=== PATIENT | female | born 1935 | race Caucasian/White ===

== ENCOUNTER → 2017-09-14 | Outpatient (CLI) | payer OTHER ==
[~2017-09-14] MED LIST: ANORO ELLIPTA1 EACH INH; ASPIRIN81 M2 PO; CELEBREX 200 M200 M1 PO; CRESTOR20 MG PO; HYDROCODON-ACE1 EA12 PO; IPRAT-ALBUT 0.5-3 ML INH; LASIX 20 MG TAB20 MG PO; PAXIL10 MG PO; POTASSIUM20 PO; SENNA8.6 MG PO; TOPROL XL100 MG PO; VENTOLIN HFA 1818 GM INH
--- NOTE | 2017-09-14 16:18 | 2DMMODE ---
[place] [address] 2 D/M-MODE ECHOCARDIOGRAM Name: AILEEN DANIELS Room: [facility]#: [id number] Admission: 09/14/17 Attend Phys: Ruddy Fajardo, Discharge: Date of : 39 Date of Service: 09/14/17 1618 Report #: [id number] THIS REPORT FOR: //name// APPROVED REPORT Study performed: 09/14/2017 14:21:54 EXAM: Comprehensive 2D, Doppler, and color-flow Echocardiogram Patient Location: Out-Patient Status: routine BSA: 1.76 HR: 68 bpm BP: 130/86 mmHg Other Information Study Quality: Good Indications CAD 2D Dimensions LVEF(%): 48.31 (>50%) IVSd: 13.21 (7-11mm) LVOT Diam: 19.24 (18-24mm) LVDd: 40.48 mm PWd: 8.26 (7-11mm) Ascending Ao: 28.06 (22-36mm) LVDs: 30.76 (25-40mm) Aortic Root: 29.23 mm Arguello's LVEF: 48.31 % Volumes Left Atrial Volume (Systole) LA ESV Index: 9.90 mL/m2 Aortic Valve AoV Peak Polo.: 1.34 m/s AO Peak Gr.: 7.16 mmHg LVOT Max P.46 mmHg AO Mean Gr.: 4.32 mmHg LVOT Mean P.12 mmHg LVOT Max V: 0.78 m/s AO V2 VTI: 23.45 cm LVOT Mean V: 0.48 m/s JOHNATHON (VTI): 1.59 cm2 LVOT V1 VTI: 12.79 cm Mitral Valve E/A Ratio: 0.62 MV Decel. Time: 356.37 [place] [address] 2 D/M-MODE ECHOCARDIOGRAM Name: AILEEN DANIELS Room: [facility]#: [id number] Admission: 09/14/17 Attend Phys: Ruddy Fajardo, Discharge: Date of : 39 Date of Service: 09/14/17 1618 Report #: [id number] MV E Max Polo.: 0.42 m/s MV PHT: 103.35 ms MVA (PHT): 2.13 cm2 TDI E/Lateral E': 4.20 E/Medial E': 5.25 Medial E' Polo.: 0.08 m/s Lateral E' Polo.: 0.10 m/s Pulmonary Valve PV Peak Polo.: 0.96 m/s PV Peak Gr.: 3.66 mmHg Tricuspid Valve TR Peak Gr.: 27.24 mmHg RVSP: 32.24 mmHg Left Ventricle The left ventricle is normal size. There is normal LV segmental wall motion. There is normal left ventricular wall thickness. The left ventricular systolic function is normal. The left ventricular ejection fraction is within the normal range. LVEF is 55-60%. Grade I - abnormal relaxation pattern. Right Ventricle The right ventricle is normal size. The right ventricular systolic function is normal. Atria The left atrium size is normal. The right atrium size is normal. Aortic Valve Mild aortic valve sclerosis. No aortic regurgitation is present. There is no aortic valvular stenosis. Mitral Valve The mitral valve is normal in structure. There is no mitral valve regurgitation noted. No evidence of mitral valve stenosis. Tricuspid Valve The tricuspid valve is normal in structure. Mild tricuspid regurgitation. The RVSP is __32.2 mmHg. Pulmonic Valve The pulmonary valve is normal in structure. Mild [place] [address] 2 D/M-MODE ECHOCARDIOGRAM Name: AILEEN DANIELS Room: [facility]#: [id number] Admission: 09/14/17 Attend Phys: Ruddy Fajardo, Discharge: Date of : 39 Date of Service: 09/14/17 1618 Report #: [id number] Great Vessels The aortic root is normal in size. IVC is normal in size and collapses with >50% inspiration Pericardium There is no pericardial effusion. <Conclusion> The left ventricle is normal size. There is normal left ventricular wall thickness. The left ventricular systolic function is normal. The left ventricular ejection fraction is within the normal range. LVEF is 55-60%. Grade I - abnormal relaxation pattern. The right ventricle is normal size. The left atrium size is normal. Mild aortic valve sclerosis. No aortic regurgitation is present. There is no aortic valvular stenosis. The mitral valve is normal in structure. The tricuspid valve is normal in structure. Mild tricuspid regurgitation. The RVSP is __32.2 mmHg. IVC is normal in size and collapses with >50% inspiration There is no pericardial effusion. There is normal LV segmental wall motion. <ELECTRONICALLY SIGNED> By: Enio Ventura MD, FACC 09/14/17 1618 161 17 nEio Ventura MD, FACC /INF
== END ==
LOC: M.CRD 13:57
DX: I25.10 Atherosclerotic heart disease of native coronary artery without angina pectoris (principal); I07.1 Rheumatic tricuspid insufficiency; I35.8 Other nonrheumatic aortic valve disorders

== ENCOUNTER → 2017-11-12 | Outpatient (CLI) | payer OTHER | LOC: M.RAD 10:28 | DX: R06.02 Shortness of breath (principal) ==

== ENCOUNTER → 2018-05-04 | Outpatient (CLI) | payer OTHER ==
[~2018-05-04] VITALS: Ht 165.1 cm; Wt 67.6 kg
[2018-05-04] VITALS (7 sets, daily range): BP systolic 111–130; BP diastolic 58–84
[2018-05-04 10:34] LABS: HEMATOCRIT 47.2 % (37.0-47.0); HEMOGLOBIN 15.7 gm/dL (12.0-15.0); MCH 31.2 pg (26.0-34.0); MCHC 33.3 g/dL (28.0-37.0); MCV 93.6 fL (80.0-100.0); MPV 8.1 fl. (7.2-11.1); RBC 5.04 mil/uL (4.20-5.00); RDW-CV 14.9 % (10.5-14.5)
[2018-05-04 10:46] LABS: ANION GAP 8 mmol/L (7-16); APTT 35.2 Seconds (25.0-31.3); BUN 22 mg/dL (7-18); CALCIUM 9.3 mg/dL (8.5-10.1); CHLORIDE 106 mmol/L (98-107); CO2 25 mmol/L (21-32); CREATININE 1.1 mg/dL (0.6-1.3); GLUCOSE 80 mg/dL (70-99); PROTIME 10.3 Seconds (9.20-11.50); SODIUM 139 mmol/L (136-145)
[2018-05-04 10:51] LABS: ALBUMIN 3.2 g/dL (3.4-5.0); ALKALINE PHOSPHATASE 65 U/L (46-116); CHOLESTEROL 173 mg/dL (<200); HDL CHOLESTEROL 85 mg/dL (>40); LDL CHOLESTEROL 70 mg/dL (<100); SERUM ASSESSMENT Clear; SGOT 14 U/L (15-37); SGPT 15 U/L (30-65); TOTAL BILIRUBIN 0.6 mg/dL (<0.1-1.0); TOTAL PROTEIN 6.9 g/dL (6.4-8.2); TRIGLYCERIDE 90 mg/dL (<150); VLDL 18 mg/dL (<40)
[2018-05-04 13:15] LABS: BE -2.3 mmol/L (-2 to +3); HCO3 22.3 mmol/L (22.0-26.0)
[2018-05-04 13:19] LABS: BE -2.6 mmol/L (-2 to +3); HCO3 21.7 mmol/L (22.0-26.0); PCO2 VENOUS 36.4 mmHg (41.0-51.0); PO2 VENOUS 43.3 mmHg (35.0-45.0)
[2018-05-04 13:22] LABS: BE -3.9 mmol/L (-2 to +3); HCO3 20.4 mmol/L (22.0-26.0); PCO2 VENOUS 35.2 mmHg (41.0-51.0); PO2 VENOUS 42.1 mmHg (35.0-45.0)
[2018-05-04 13:24] LABS: BE -3.2 mmol/L (-2 to +3); HCO3 20.3 mmol/L (22.0-26.0); PCO2 32.5 mmHg (35.0-45.0); PO2 70.7 mmHg (75.0-100.0); pH 7.413 (7.340-7.450)
[2018-05-04 13:26] LABS: BE -2.1 mmol/L (-2 to +3); HCO3 22.1 mmol/L (22.0-26.0); PCO2 36.6 mmHg (35.0-45.0); pH 7.398 (7.340-7.450)
[2018-05-04 13:29] LABS: PO2 VENOUS 36.5 mmHg (35.0-45.0)
[2018-05-04 15:07] LABS: BE -2.7 mmol/L (-2 to +3); HCO3 19.6 mmol/L (22.0-26.0); PCO2 28.5 mmHg (35.0-45.0); PO2 63.6 mmHg (75.0-100.0); pH 7.456 (7.340-7.450)
--- NOTE | 2018-05-04 17:12 | EKG ---
[place] [address] ELECTROCARDIOGRAM REPORT Name: AILEEN DANIELS Room: [facility]#: [id number] Admission: 05/04/18 Attend Phys: Ruddy Fajardo MD Discharge: Date of : 39 Report #: [id number] THIS REPORT FOR: //name// [facility] Test Date: 2018-05-04 Test Time: 10:30:35 Pat Name: AILEEN DANIELS Department: Room: Gender: F Deliverer Merchandise: : 1935 Requested By: Ruddy Fajardo Order Number: [id number] Reading : Enio Ventura Measurements Intervals [place] Rate: 67 P: 8 [place]: 194 QRS: -11 QRSD: 128 T: 117 QT: 431 QTc: 455 Interpretive Statements Sinus rhythm Left bundle branch block No previous ECG available for comparison Electronically Signed On 05-04-2018 17:11:46 CDT by Enio Ventura [email or web address] <ELECTRONICALLY SIGNED> By: Enio Ventura MD, [facility] 05/04/18 1711 1030 1030 Enio Ventura MD, FACC /EPI
--- NOTE | 2018-05-04 17:24 | CARD ---
[address] [address] CARDIAC CATH REPORT Name: AILEEN DANIELS Room: [facility]#: [id number] Admission: 05/04/18 Attend Phys: Ruddy Fajardo MD Discharge: Date of : 39 Report #: [id number] THIS REPORT FOR: //name// APPROVED REPORT Study performed: 05/04/2018 11:52:35 Patient Details Patient Status: Out-Patient Room #: The patient is a 83 year-old female Event Personnel Ruddy Fajardo Mine Supervisor, Chrissy Finch RN Cotton Picker Operator, Niko Monroy (R) Monitor, Rolf Larson Scrub, Mary Ellen Boyce RTR Scrub Procedures Performed Right and Left Heart Cath Lt Vent/Cors/Grafts Indication Persistent dyspnea and hypoxia with activity. Previous Procedures/Diagnoses Previous CABG Procedure Narrative The patient was brought electively to the Cardiac Catheterization Laboratory and was prepped and draped in a sterile manner. The right femoral was infiltrated with 1% Lidocaine subcutaneous anesthesia. A Right Heart Catheterization was performed with a 6 Fr. [place]-Rajinder catheter and pressure were recorded. Cardiac outputs were obtained by the Thermal Dilution method. A 6fr Ultimum Sheath sheath was inserted into the right femoral artery. Coronary angiography was performed using coronary diagnostic catheters. The right coronary system was accessed and visualized with a Diagnostic JR4 catheter. The left coronary system was accessed and visualized with a Diagnostic JL4 catheter. The left ventricle was accessed and visualized with a Diagnostic Angled Pigtail catheter. Left ventricular/Aortic Valve gradient assessed via catheter pullback. Left ventriculogram was performed in 30 degree, IZAGUIRRE projection. Closure device was deployed with a Fr Multi-Pack 6fr. The patient tolerated the procedure well and there were no complications associated with the procedure. There was no hematoma[place] [address] CARDIAC CATH REPORT Name: AILEEN DANIELS Room: [facility]#: [id number] Admission: 05/04/18 Attend Phys: Ruddy Fajardo MD Discharge: Date of : 39 Report #: [id number] Fentanyl 25 mcg Versed 1 mg Dose: 1197 mGy Contrast Type and Amount: Visipaque 190 ml Coronary Angiography The patient's coronary anatomy is right dominant. [place] Artery Percent Stenosis Grafts (Complete if Previous CABG=Yes: Percent Stenosis) NAPOLES graft to the LAD widely patent. Saphenous vein graft to the second obtuse marginal branch widely patent. Saphenous vein graft to the right PDA widely patent. Diagnostic Cath Left Main Short and normal and bifurcates into an LAD and circumflex coronary artery. LAD Calcified and 50% narrowed in a long tubular lesion extending from proximal to mid. Totally occluded in the midportion. Distally filled by NAPOLES graft. Diagonal 1 Small in caliber and diffusely disease. Circumflex 50% narrowing proximally and calcified. Mid and distal vessel free of significant stenoses. OM1 Mildly plaqued, moderate in size and branched. OM2 Totally occluded at its origin and filled by a graft. OM3 Small in size and free of significant disease. Right Coronary Totally occluded proximally. R PDA Small and diffusely plaqued. Filled by saphenous vein graft. Hemodynamics The right atrial mean pressure is 26 mmHg. The right ventricular pressure is 41/-4 mmHg. The pulmonary artery pressure is 38/15 mmHg with a mean of 24 mmHg. The mean pulmonary capillary wedge pressure is 10 mmHg. The aortic pressure is 134/64 mmHg with a mean of 91 mmHg. The left ventricular pressure is 149/73 mmHg with a mean of mmHg. The left ventricular end diastolic pressure is 77 mmHg. There was no gradient across the aortic valve upon pullback. PaO2 saturation is 72.5 %. Arterial saturation is 92.1 %. The cardiac output and index were assessed using thermodilution. The cardiac output using thermo method is 4.53 L/min. The cardiac index using thermo method is 2.60 L/min/m2. Conclusion 1. Three-[place] [address] CARDIAC CATH REPORT Name: AILEEN DANIELS Room: [facility]#: [id number] Admission: 05/04/18 Attend Phys: Ruddy Fajardo MD Discharge: Date of : 39 Report #: [id number] 2. Patent NAPOLES graft to the LAD. 3. Patent saphenous vein graft to the second obtuse marginal branch. 4. Patent saphenous vein graft to the right PDA. 5. Preserved left ventricular systolic function with mild hypokinesis of the mid to distal anterior and apical abel. 6. Normal right heart pressures. 7. Normal cardiac output. 8. No evidence of shunt by saturations. Recommendations 1. Continue medical management and aggressive risk factor modification. <ELECTRONICALLY SIGNED> By: Ruddy Fajardo MD, FACC 05/04/181723 23 23Micdeondre Fajardo MD, FACC /INF
== END | disposition home or self-care (01) ==
LOC: M.CL 09:22
PROVIDERS: Internal Medicine Cardiovascular Disease
DX: I25.10 Atherosclerotic heart disease of native coronary artery without angina pectoris (principal); I42.9 Cardiomyopathy, unspecified; E78.5 Hyperlipidemia, unspecified; I44.7 Left bundle-branch block, unspecified; I10 Essential (primary) hypertension; E78.2 Mixed hyperlipidemia; I48.0 Paroxysmal atrial fibrillation; F41.9 Anxiety disorder, unspecified; M19.90 Unspecified osteoarthritis, unspecified site; J45.909 Unspecified asthma, uncomplicated; I73.9 Peripheral vascular disease, unspecified; Z79.82 Long term (current) use of aspirin; Z79.899 Other long term (current) drug therapy; Z95.1 Presence of aortocoronary bypass graft; Z90.710 Acquired absence of both cervix and uterus; Z98.890 Other specified postprocedural states

== ENCOUNTER → 2018-07-15 | Outpatient (CLI) | payer OTHER ==
[2018-07-15 14:12] LABS: HEMATOCRIT 46.9 % (37.0-47.0); HEMOGLOBIN 15.9 gm/dL (12.0-15.0); MCH 32.1 pg (26.0-34.0); MCHC 33.9 g/dL (28.0-37.0); MCV 94.6 fL (80.0-100.0); MPV 8.2 fl. (7.2-11.1); RBC 4.95 mil/uL (4.20-5.00); RDW-CV 14.1 % (10.5-14.5); WBC 6.3 thou/uL (4.0-11.0)
== END ==
LOC: M.LAB 13:47
PROVIDERS: Internal Medicine Cardiovascular Disease
DX: R06.09 Other forms of dyspnea (principal)

== ENCOUNTER 2020-03-11 20:42 | Inpatient (IN) | payer OTHER ==
[~2020-03-11] VITALS: Ht 165.1 cm; Wt 69.2 kg
--- NOTE | ~2020-03-11 | CON ---
[facility] [address] [place] [address] CONSULTATION Name: JEREMIAHAILEEN SHAHID Room: [address] ADM IN M.R.#: [id number] Admission: 03/11/20 Attend Phys: Solis Ferreira Discharge: Date of : 37 Report #: [id number] THIS REPORT FOR: //name// cc: Ramona Green MD, Lin W. MD ~ THIS REPORT FOR: //name// CC: Ramona Jones DATE OF SERVICE: 03/13/2020 REQUESTING PHYSICIAN: Dr. Jones. INDICATION FOR CONSULTATION: Hypoxemia. HISTORY OF PRESENT ILLNESS: This is an 85-year-old female with past medical history includes a history of COPD, although she is a lifetime nonsmoker. She has significant exposure to secondhand smoke. She is followed by Dr. Leblanc. She is on 4 liters oxygen long-term. There is no known history of CPAP or BiPAP use at home. The patient also does have a history of atrial fibrillation and is on anticoagulation at home. At this time, the patient is admitted late at night on 03/11 presentation was after a fall from a chair, she got bilateral hematomas on lower extremities, she has a small bruising in her right chest as well. The patient was due for an I and D today. However, there is a significant increase in oxygen needs from 4 liters to 14 liters to maintain O2 saturation in the low 90s and therefore the surgery has been postponed and we have been asked to evaluate the patient. The patient does complain of shortness of breath at rest or more than her baseline. She does have a cough. There is not much sputum. There is minor pain in her right chest, which she did injure herself. She does report a clear nasal discharge, this is new for her. There is no sore throat. There is no fever or chills. She does have some swelling of lower extremities, but other than having hematomas in the lower extremities, she does not report this to be significantly worse than her baseline. She has had some joint pains, which are at baseline. She does complain of frequency of micturition. There is pain at the site of injuries. REVIEW OF SYSTEMS: I asked her 12 questions for review of systems, patient answered the negatives except as mentioned above. PAST MEDICAL HISTORY: COPD, on 4 liters oxygen continuous. Cardiomyopathy. There is a previous echo from 2018, which shows a left ventricular ejection fraction normal at 55-60% with a pulmonary artery systolic of 32. She may have had a more recent echo at [facility]; however, the same is not available to me at this time and atrial fibrillation, on anticoagulation with Eliquis; left bundle branch block; hypertension; [place] [address] CONSULTATION Name: AILEEN DANIELS Room: [address] ADM IN M.R.#: [id number] Admission: 03/11/20 Attend Phys: Solis Ferreira Discharge: Date of : 39 Report #: [id number] SOCIAL HISTORY: She is a lifetime nonsmoker. No known history of heavy alcohol use or illegal drug use. Has had significant exposure to secondhand smoke. FAMILY HISTORY: There is heart disease in the family. There is also significant history of smoking in her family. ALLERGIES: No known drug allergies. CURRENT MEDICATIONS: List in [facility] reviewed. HOME MEDICATIONS: List in [place] reviewed. Also, she is describing an inhaler from her description, it may be Anoro. PHYSICAL EXAMINATION: GENERAL: She is alert, awake and oriented, does not appear to be in any distress at this time; however, she is oxygenating only 88-90%. She is on 14 liters oxygen, she has a pulse of 102, irregular with a blood pressure of 120/66. Her respiratory rate is 20. She has a temperature of 37.2, which is a T-max. HEENT: Head is normocephalic and atraumatic. Pupils are equal and reactive. There is no throat erythema. There is no thrush in her throat; however, there was some food present in her throat, which limits evaluation. NECK: Does not show raised JVP, asymmetry, mass or lymph nodes. CHEST: Symmetrical expansion on inspection and palpation. On auscultation, breath sounds are bilaterally equal, but decreased. I do not hear any added sounds. There is a minor bruising in the right chest. HEART: Irregular. There is a minimal systolic murmur. ABDOMEN: Soft and nontender. There is no bruising over her abdomen. EXTREMITIES: Lower extremities do show 1+ edema. There are hematomas bilaterally as well. SKIN: Compromised by injuries as above, it is moist. NEUROLOGICAL: She moves all extremities bilaterally equally and spontaneously. No focal deficit identified. LABORATORY DATA: The patient had a CT chest performed last night. It was performed with contrast, but not with a PE protocol. There is no mention of a PE on the report. There is atelectasis at the right lung base. There is a small area of air bronchograms at the right lung base as well, which could be secondary to a small contusion or pneumonia putting her clinical picture together, it in fact appears to be more likely a small lung contusion. She has thyroid nodules. The patient's CBC as well as chemistries in [facility] reviewed. Reduced BUN to 9 is noted. Coagulation studies in [facility] reviewed. Initial D-dimer was elevated. COVID-19 screen is negative. Urinalysis does show nitrite as well as 6-[place] [address] CONSULTATION Name: AILEEN DANIELS Room: [address] ADM IN .R.#: [id number] Admission: 03/11/20 Attend Phys: Solis Ferreira Discharge: Date of : 37 Report #: [id number] ASSESSMENT AND PLAN: 1. Zhblu-bz-eenvmcg hypoxemic respiratory failure. In the background, she is reported to have COPD. This appears to have decompensated with recent injury. There is some atelectasis on the right side. Also, she appears to be fluid overloaded. There are small areas of air bronchograms in the right lung base. These are likely secondary to a small lung contusion. 2. Fluid overload. I would discontinue IV fluids. Ordered one additional dose of Lasix. She is on a small dose of Lasix long-term. Ordered midodrine to avoid a drop in blood pressure with Lasix. Ordered potassium with it as well. We requested magnesium level to be added to the morning labs. 3. Chronic obstructive pulmonary disease. Considering significant worsening hypoxia, I will give her Solu-Medrol, remains on DuoNeb, I increased the DuoNeb frequency. 4. Atelectasis. Recommended incentive spirometry. If she is able to assist with PT/OT, we will consider the same as well. 5. Pulmonary infiltrate/lung contusion. There is a small area of air bronchograms seen posteriorly at the right lung base, this is likely secondary to a small lung contusion. On CT imaging, this look identical to a small area of pneumonia. While my clinical impression is that this is more likely secondary to her recent injury leading to a small contusion. Considering worsening hypoxia, I did decide to treat her with ceftriaxone. She is able to provide a sputum culture, we will obtain the same as well. Also, ordered a nasal swab for methicillin-resistant Staphylococcus aureus. 6. Atrial fibrillation. She is noted to be on Eliquis at home, which is currently on hold. 7. Evaluation for thromboembolic phenomenon. My suspicion is low, considering that she was on Eliquis at home. If she fails to improve, then I will review with the radiologist as to whether there is an indication to repeat a CT chest with PE protocol. 8. Fall/bilateral lower extremity hematomas/minor right chest bruise. I will suggest proceeding to I and D of hematomas today only if urgent. Otherwise, we will reevaluate the patient tomorrow morning and then advice. Regardless, the patient is likely to remain high risk for general anesthesia and therefore if possible suggest avoiding general anesthesia. Thanks for this consultation. By: [id number] Patel MD /nt
[~2020-03-11 20:42] MED LIST changes: +ASPIRIN EC81 M1 PO; -ASPIRIN81 M2 PO
[2020-03-11 20:44] VITALS: BP 87/43
[2020-03-11 21:25] LABS: HEMATOCRIT 31.8 % (37.0-47.0); HEMOGLOBIN 10.7 gm/dL (12.0-15.0); MCH 29.6 pg (26.0-34.0); MCHC 33.6 g/dL (28.0-37.0); MPV 8.5 fl. (7.2-11.1); NUCLEATED RBCS 0 /100WBC; PLATELET COUNT* 252 thou/uL (150-400); RBC 3.62 mil/uL (4.20-5.00); WBC 12.2 thou/uL (4.0-11.0)
[2020-03-11 21:29] LABS: INR 1.1; PROTIME 11.6 Seconds (9.20-11.50)
[2020-03-11 21:31] LABS: CALCIUM 8.7 mg/dL (8.5-10.1); CREATININE 1.3 mg/dL (0.6-1.3); POTASSIUM 5.3 mmol/L (3.5-5.1)
[2020-03-11 21:41] LABS: ALBUMIN 2.4 g/dL (3.4-5.0); MAGNESIUM 1.5 mg/dL (1.8-2.4); TOTAL BILIRUBIN 0.4 mg/dL (<0.1-1.0); TOTAL PROTEIN 5.6 g/dL (6.4-8.2)
[2020-03-11 22:19] LABS: ABSOLUTE LYMPHOCYTES 0.7 thou/uL (0.8-5.3); ABSOLUTE MONOCYTES 0.2 thou/uL (0.0-1.2); ABSOLUTE NEUTROPHILS 11.2 thou/uL (1.6-8.1)
[2020-03-11 22:22] LABS: PLATELET ESTIMATE ADEQUATE
[2020-03-11 22:23] LABS: ANISOCYTOSIS 1+
[2020-03-11 23:12] VITALS: BP 101/58
[2020-03-11 23:40] VITALS: BP 122/61
[2020-03-12 04:00] VITALS: BP 88/60
[2020-03-12 08:30] VITALS: BP 97/56
[2020-03-12 08:46] LABS: ABSOLUTE LYMPHOCYTES 0.9 thou/uL (0.8-5.3); ABSOLUTE MONOCYTES 0.7 thou/uL (0.0-1.2); ABSOLUTE NEUTROPHILS 5.7 thou/uL (1.6-8.1); BASOPHILS 0.7 %; EOSINOPHILS 0.6 %; HEMATOCRIT 29.4 % (37.0-47.0); LYMPHOCYTES 12.5 %; MCH 30.2 pg (26.0-34.0); MCHC 33.9 g/dL (28.0-37.0); MCV 89.2 fL (80.0-100.0); MPV 7.9 fl. (7.2-11.1); NUCLEATED RBCS 0 /100WBC; PLATELET COUNT* 228 thou/uL (150-400); POLYS 77.2 %; RDW-CV 17.5 % (10.5-14.5); WBC 7.3 thou/uL (4.0-11.0)
[2020-03-12 09:16] LABS: ALBUMIN 2.2 g/dL (3.4-5.0); CALCIUM 7.8 mg/dL (8.5-10.1); TOTAL BILIRUBIN 0.4 mg/dL (<0.1-1.0); TOTAL PROTEIN 5.2 g/dL (6.4-8.2)
[2020-03-12 09:17] LABS: POTASSIUM 4.4 mmol/L (3.5-5.1)
--- NOTE | 2020-03-12 09:33 | EKG ---
[place] [address] ELECTROCARDIOGRAM REPORT Name: AILEEN DANIELS Room: [address] ADM IN .R.#: [id number] Admission: 03/11/20 Attend Phys: Erwin Jones Discharge: Date of : 39 Date of Service: 03/11/202110 Report #: [id number] THIS REPORT FOR: //name// [facility] ED Test Date: 2020-03-11 Test Time: 21:11:30 Pat Name: AILEEN DANIELS Department: Room: [facility] Gender: F Ux Interaction Designer: EDITA : 1935 Requested By: Patricia Dumas Order Number: [id number] MD: Jamshid Moreno Measurements Intervals [place] Rate: 68 P: 18 [place]: 216 QRS: -11 QRSD: 123 T: 118 QT: 434 QTc: 462 Interpretive Statements Sinus rhythm Borderline prolonged WA interval Left bundle branch block Baseline wander in lead(s) II,III,aVF,V4 Compared to ECG 05/04/2018 10:30:35 No significant changes Electronically Signed On 03-12-2020 9:33:45 CDT by Jamshid Moreno [email or web address] <ELECTRONICALLY SIGNED> By: Jamshid Moreno MD, FACC 03/12/2033 10 10 Jamshid Moreno MD, FAC /EPI
[2020-03-12 10:21] LABS: URINE BILIRUBIN NEGATIVE (Negative); URINE BLOOD NEGATIVE (Negative); URINE CLARITY CLEAR; URINE COLOR YELLOW; URINE GLUCOSE-RANDOM NEGATIVE (Negative); URINE KETONES NEGATIVE (Negative); URINE LEUKOCYTES-REFLEX TRACE (Negative); URINE PROTEIN NEGATIVE (Negative); URINE SPECIFIC GRAVITY 1.025 (1.005-1.030); URINE UROBILINOGEN 0.2 E.U./dl (0.2-1.0)
[2020-03-12 10:22] LABS: URINE NITRITE-REFLEX POSITIVE (Negative)
[2020-03-12 10:28] LABS: BACTERIA-REFLEX >30 Many /HPF (None Seen); MUCUS 0-3 Light strn/LPF (None Seen); SQUAMOUS 0-3 Few /LPF (0-3); URINE RBC 0-2 Rare /HPF (0-2); URINE WBC-REFLEX 6-15 Few /HPF (0-5)
[2020-03-12 10:29] LABS: CRYSTALS None Seen /LPF (None Seen); HYALINE CASTS 4-10 Moderate /LPF (None Seen)
[2020-03-12 12:13] VITALS: BP 102/49
--- NOTE | 2020-03-12 16:16 | NUR ---
Pt is A&O. Resides at home alone. Pt has a "nurse friend" that comes in 3x/week to assist with cooking, cleaning and does the treatments on her legs. Pt uses a walker or cane for mobility. Pt wears 4L o2 continuous through [facility]. Hx of [facility]. No hx of SNF. Pt states that she wants to complete an OOH DNR, CM to have Pt sign. Copy of DPOA brought to the hospital and on Pt's chart. Surgery drained Pt's hematoma's at bedside today. Following.
[2020-03-12 19:50] VITALS: BP 115/63
[2020-03-13 00:08] VITALS: BP 125/58
[2020-03-13 04:48] VITALS: BP 130/62
[2020-03-13 06:32] LABS: ABSOLUTE LYMPHOCYTES 0.8 thou/uL (0.8-5.3); ABSOLUTE MONOCYTES 0.8 thou/uL (0.0-1.2); ABSOLUTE NEUTROPHILS 7.1 thou/uL (1.6-8.1); BASOPHILS 0.4 %; EOSINOPHILS 0.1 %; HEMOGLOBIN 9.2 gm/dL (12.0-15.0); LYMPHOCYTES 9.3 %; MCH 30.1 pg (26.0-34.0); MCV 88.4 fL (80.0-100.0); MONOCYTES 9.4 %; MPV 8.6 fl. (7.2-11.1); NUCLEATED RBCS 0 /100WBC; PLATELET COUNT* 207 thou/uL (150-400); POLYS 80.8 %; RBC 3.05 mil/uL (4.20-5.00); RDW-CV 17.6 % (10.5-14.5); WBC 8.8 thou/uL (4.0-11.0)
[2020-03-13 06:42] LABS: ALBUMIN 2.3 g/dL (3.4-5.0); CALCIUM 7.8 mg/dL (8.5-10.1); CREATININE 0.8 mg/dL (0.6-1.3); TOTAL BILIRUBIN 0.5 mg/dL (<0.1-1.0); TOTAL PROTEIN 5.5 g/dL (6.4-8.2)
--- NOTE | 2020-03-13 07:08 | NUR ---
PT O2 SAT DROPED TO LOW 80'2 PT HIGH FLOW WAS ADJUSTED FROM 7-8-15L HIGH FLOW THROUGHTOUT THE NIGHT, PT O2 STABLE AT 15L HIGH FLOW. PT PLACED ON A PUREWICK PER REQUEST.
[2020-03-13 08:00] VITALS: BP 120/66
[2020-03-13 08:27] LABS: PROTIME 10.6 Seconds (9.20-11.50)
--- NOTE | 2020-03-13 11:17 | NUR ---
Pt scheduled to have surgery today, anxious requiring 14L oxygen, pulm consulted.
[2020-03-13 12:00] VITALS: BP 88/65
[2020-03-13 16:00] VITALS: BP 103/53
--- NOTE | 2020-03-13 16:11 | 2DMMODE ---
[place] [address] 2 D/M-MODE ECHOCARDIOGRAM Name: JEREMIAHAILEEN ANN Room: [address] IN [facility]#: [id number] Admission: 03/11/20 Attend Phys: Erwin Jones Discharge: Date of : 39 Date of Service: 03/13/20 1611 Report #: [id number] THIS REPORT FOR: cc: Ramona Green MD, Lin W. MD [place], Michael J. MD [facility] ~ APPROVED REPORT Study performed: 03/13/2020 13:34:10 EXAM: Comprehensive 2D, Doppler, and color-flow Echocardiogram Patient Location: In-Patient Room #: [facility] Status: routine BSA: 1.74 HR: 88 bpm BP: 120/66 mmHg Rhythm: NSR Other Information Study Quality: Good Indications Dyspnea 2D Dimensions IVSd: 10.53 (7-11mm) LVOT Diam: 18.37 (18-24mm) LVDd: 42.35 mm PWd: 11.32 (7-11mm) Ascending Ao: 28.40 (22-36mm) LVDs: 26.80 (25-40mm) Aortic Root: 27.09 mm Volumes Left Atrial Volume (Systole) LA ESV Index: 21.20 mL/m2 Aortic Valve AoV Peak Polo.: 1.52 m/s AO Peak Gr.: 9.19 mmHg LVOT Max P.54 mmHg AO Mean Gr.: 4.66 mmHg LVOT Mean P.67 mmHg LVOT Max V: 0.94 m/s AO V2 VTI: 22.54 cm LVOT Mean V: 0.59 m/s JOHNATHON (VTI): 1.80 cm2 LVOT V1 VTI: 15.27 [place] [address] 2 D/M-MODE ECHOCARDIOGRAM Name: AILEEN DANIELS SHAHID Room: [address] IN M.R.#: [id number] Admission: 03/11/20 Attend Phys: Erwin Jones Discharge: Date of : 39 Date of Service: 03/13/20 1611 Report #: [id number] Mitral Valve E/A Ratio: 0.65 MV Decel. Time: 192.69 ms MV E Max Polo.: 0.64 m/s MV PHT: 55.88 ms MVA (PHT): 3.94 cm2 TDI E/Lateral E': 4.92 E/Medial E': 8.00 Medial E' Polo.: 0.08 m/s Lateral E' Polo.: 0.13 m/s Pulmonary Valve PV Peak Polo.: 1.03 m/s PV Peak Gr.: 4.22 mmHg Tricuspid Valve RAP Estimate: 5.00 mmHg TR Peak Gr.: 35.48 mmHg RVSP: 40.00 mmHg PA Pressure: 40.00 mmHg Left Ventricle The left ventricle is normal size. There is slight left ventricular systolic dyssynergy consistent with underlying bundle branch block. There is normal left ventricular wall thickness. Left ventricular systolic function is normal. LVEF is 55-60%. Grade I - abnormal relaxation pattern. Right Ventricle The right ventricle is normal size. The right ventricular systolic function is normal. Atria The left atrium size is normal. Right atrium is dilated. Aortic Valve Mild aortic valve sclerosis. No aortic regurgitation is present. Mild aortic stenosis. Mitral Valve The mitral valve is normal in structure. There is no mitral valve regurgitation noted. No evidence of mitral valve stenosis. Tricuspid Valve The tricuspid valve is normal in structure. Mild tricuspid regurgitation. The RVSP is 40-[place] [address] 2 D/M-MODE ECHOCARDIOGRAM Name: RANULFODaquanAILEEN SHAHID Room: [address] IN [facility]#: [id number] Admission: 03/11/20 Attend Phys: Erwin Jones Discharge: Date of : 39 Date of Service: 03/13/20 1611 Report #: [id number] Pulmonic Valve The pulmonary valve is normal in structure. Mild pulmonic regurgitation. Great Vessels The aortic root is normal in size. IVC is normal in size and collapses >50% with inspiration. Pericardium There is no pericardial effusion. <Conclusion> The left ventricle is normal size. There is normal left ventricular wall thickness. Left ventricular systolic function is normal. LVEF is 55-60%. Grade I - abnormal relaxation pattern. There is slight left ventricular systolic dyssynergy consistent with underlying bundle branch block. Mild aortic valve sclerosis. Mild aortic stenosis. Mild tricuspid regurgitation. The RVSP is 40-45 mmHg. IVC is normal in size and collapses >50% with inspiration. <ELECTRONICALLY SIGNED> By: Ruddy Fajardo MD, FACC 03/13/20 161 10 10 Ruddy Fajardo MD, FACC /INF
--- NOTE | 2020-03-13 19:04 | NUR ---
Pt. aox4, vss, pain under control, assisted md with wound care to LLE. RLE hematoma HIMANSHU, no drainage. Pt. continues on 14L NC, discussed resp status with annabelle rosa and alina senior rd engineer. IV placed per jennifer: 20 L AC, 20 L FA. call light and personal belongings placed within reach. pt in bed, in stable condition, watching tv, at shift change.
[2020-03-13 19:40] VITALS: BP 111/59
[2020-03-14] VITALS: BP 104/59
[2020-03-14 04:00] VITALS: BP 111/57
[2020-03-14 05:32] LABS: ABSOLUTE LYMPHOCYTES 0.4 thou/uL (0.8-5.3); ABSOLUTE MONOCYTES 0.1 thou/uL (0.0-1.2); ABSOLUTE NEUTROPHILS 7.1 thou/uL (1.6-8.1); BASOPHILS 0.2 %; HEMATOCRIT 27.1 % (37.0-47.0); HEMOGLOBIN 9.3 gm/dL (12.0-15.0); LYMPHOCYTES 5.6 %; MCH 30.1 pg (26.0-34.0); MCHC 34.4 g/dL (28.0-37.0); MCV 87.6 fL (80.0-100.0); MONOCYTES 1.8 %; MPV 8.3 fl. (7.2-11.1); NUCLEATED RBCS 0 /100WBC; PLATELET COUNT* 220 thou/uL (150-400); POLYS 92.4 %; RDW-CV 17.2 % (10.5-14.5); WBC 7.7 thou/uL (4.0-11.0)
[2020-03-14 06:58] LABS: ALBUMIN 2.4 g/dL (3.4-5.0); CALCIUM 8.1 mg/dL (8.5-10.1); CREATININE 0.8 mg/dL (0.6-1.3); MAGNESIUM 1.7 mg/dL (1.8-2.4); POTASSIUM 3.6 mmol/L (3.5-5.1); TOTAL BILIRUBIN 0.5 mg/dL (<0.1-1.0); TOTAL PROTEIN 6.2 g/dL (6.4-8.2)
[2020-03-14 08:00] VITALS: BP 105/59
--- NOTE | 2020-03-14 11:24 | NUR ---
Pt to surgery today for hematoma evacuation. Pt remains on 14L o2, normally on 4L at home. Following.
[2020-03-14 12:00] VITALS: BP 115/76
--- NOTE | 2020-03-14 16:33 | NUR ---
PT RETURN FROM OR FOR I/D OF LEFT LOWER LEG HEMATOMA WITH WOUND VAC APPLICATION. PT ON 13L [place] NC WITH CONTINOUS PULSE OXIMETER SATURATING 94%. WILL PASS ON TO [facility].
[2020-03-14 17:00] VITALS: BP 141/72
[2020-03-14 17:20] LABS: ABSOLUTE BASOPHILS 0.1 thou/uL (0.0-0.2); ABSOLUTE LYMPHOCYTES 0.4 thou/uL (0.8-5.3); ABSOLUTE MONOCYTES 0.6 thou/uL (0.0-1.2); ABSOLUTE NEUTROPHILS 14.3 thou/uL (1.6-8.1); BASOPHILS 0.5 %; HEMATOCRIT 29.1 % (37.0-47.0); HEMOGLOBIN 9.7 gm/dL (12.0-15.0); LYMPHOCYTES 2.9 %; MCH 29.3 pg (26.0-34.0); MCHC 33.3 g/dL (28.0-37.0); MCV 88.1 fL (80.0-100.0); MONOCYTES 4.1 %; MPV 8.4 fl. (7.2-11.1); NUCLEATED RBCS 0 /100WBC; PLATELET COUNT* 266 thou/uL (150-400); POLYS 92.5 %; RBC 3.31 mil/uL (4.20-5.00); RDW-CV 17.6 % (10.5-14.5); WBC 15.5 thou/uL (4.0-11.0)
[2020-03-14 17:26] LABS: CALCIUM 8.5 mg/dL (8.5-10.1); POTASSIUM 3.6 mmol/L (3.5-5.1)
[2020-03-14 20:00] VITALS: BP 91/44
[2020-03-15] VITALS: BP 101/60
--- NOTE | 2020-03-15 02:45 | NUR ---
PT ALERT ORIENTED. TAKING HYDROCODONE Q 4 HRS. PT STATING, "I WANT TO STAY ON TOP OF THE PAIN" L LEG WOUND VAC -125 SXN. PT REFUSING TO TURN AT TIMES. ENCOURAGEMENT TO TURN PROVIDED. TELEMETRY SHOWW SR BBB. O2 TITRATED FROM 13 LITERS TO 11. WILL CONTINUE TO MONITOR.
[2020-03-15 04:04] VITALS: BP 106/57
[2020-03-15 05:09] LABS: HEMATOCRIT 26.6 % (37.0-47.0); HEMOGLOBIN 9.1 gm/dL (12.0-15.0); MCH 29.9 pg (26.0-34.0); MCHC 34.1 g/dL (28.0-37.0); MCV 87.6 fL (80.0-100.0); MPV 8.8 fl. (7.2-11.1); NUCLEATED RBCS 0 /100WBC; PLATELET COUNT* 276 thou/uL (150-400); RBC 3.04 mil/uL (4.20-5.00); RDW-CV 17.5 % (10.5-14.5); WBC 13.6 thou/uL (4.0-11.0)
[2020-03-15 05:27] LABS: ALBUMIN 2.4 g/dL (3.4-5.0); CALCIUM 8.1 mg/dL (8.5-10.1); MAGNESIUM 2.1 mg/dL (1.8-2.4); POTASSIUM 3.9 mmol/L (3.5-5.1); TOTAL BILIRUBIN 0.4 mg/dL (<0.1-1.0)
[2020-03-15 05:56] LABS: ABSOLUTE LYMPHOCYTES 0.5 thou/uL (0.8-5.3); ABSOLUTE MONOCYTES 0.4 thou/uL (0.0-1.2); ABSOLUTE NEUTROPHILS 12.6 thou/uL (1.6-8.1); ANISOCYTOSIS 1+; PLATELET ESTIMATE ADEQUATE; POIKILOCYTOSIS 1+
[2020-03-15 08:00] VITALS: BP 113/55
--- NOTE | 2020-03-15 10:10 | NUR ---
Pt will need a wound vac at dc, nurse put in a wound care consult. CM spoke with wound care nurse ask that he complete the wound portion of the vac judi. CM placed judi on front of Pt's chart. Pt is in agreement with HH, CM faxed facesheet to [employer] so they can run for coverage, [facility]. Pt still requiring 11L of oxygen, anticipate dc in a few days. Following.
[2020-03-15 14:05] VITALS: BP 120/66
[2020-03-15 17:18] VITALS: BP 111/51
--- NOTE | 2020-03-15 19:01 | NUR ---
PT HAS RESTED T/O DAY,C/O PAIN TO LEG. VSS. PT REMAINS ON 9L NC. O2 SAT IS STILL 88-90%.PT IS SR,BBB ON MONITOR. WOUND CONSULT PLACED FOR HOME WOUND VAC MANAGEMENT ASSESSMENT. PT TO HAVE HOME WOUND VAC BROUGHT IN TOMORROW AND PLACED AT 1000AM. NEW ORDER FOR BIPAP O/N. [facility] CHANGED.ASSESSMENT DOCUMENTED.CLWR.WCTM
[2020-03-15 21:00] VITALS: BP 125/75
[2020-03-16] VITALS: BP 134/74
[2020-03-16 04:00] VITALS: BP 119/65
[2020-03-16 05:28] LABS: ABSOLUTE LYMPHOCYTES 0.3 thou/uL (0.8-5.3); ABSOLUTE MONOCYTES 0.5 thou/uL (0.0-1.2); ABSOLUTE NEUTROPHILS 10.4 thou/uL (1.6-8.1); BASOPHILS 0.1 %; HEMATOCRIT 27.3 % (37.0-47.0); HEMOGLOBIN 9.3 gm/dL (12.0-15.0); LYMPHOCYTES 2.9 %; MCHC 34.1 g/dL (28.0-37.0); MONOCYTES 4.8 %; MPV 8.9 fl. (7.2-11.1); NUCLEATED RBCS 0 /100WBC; PLATELET COUNT* 278 thou/uL (150-400); POLYS 92.2 %; RDW-CV 18.2 % (10.5-14.5); WBC 11.3 thou/uL (4.0-11.0)
[2020-03-16 05:41] LABS: ALBUMIN 2.5 g/dL (3.4-5.0); CALCIUM 8.4 mg/dL (8.5-10.1); MAGNESIUM 2.1 mg/dL (1.8-2.4); TOTAL BILIRUBIN 0.4 mg/dL (<0.1-1.0); TOTAL PROTEIN 6.3 g/dL (6.4-8.2)
--- NOTE | 2020-03-16 06:45 | NUR ---
No acute event this shift. Pt complains of leg pain rated 5, Pain meds given per sep. Pt report partial relief. Wound vac on L leg intact. Pt on continous pulse ox, sat 90's 9L high flow, Bipap was on overnight. Pt on purewick. Pt Q2 turn maintained. Pt use call light appropriately, hourly rounding, will continue to monitor.
[2020-03-16 08:00] VITALS: BP 122/74
[2020-03-16] MEDS ORDERED: LASIX 20 MG TAB20 MG PO (09:47)
[2020-03-16] MEDS ORDERED: SINGULAIR 10 MG10 M1 PO (09:47)
[2020-03-16] MEDS ORDERED: HYDROCODON-ACE1 EAC7 PO (09:47)
[2020-03-16] MEDS ORDERED: CARDIZEM CD120 MG PO (09:49)
[2020-03-16] MEDS ORDERED: AMOX TR-K CLV1 EAC3 PO (09:49)
[2020-03-16] MEDS ORDERED: PREDNISONE 10 M10 MG PO (09:56)
--- NOTE | 2020-03-16 11:32 | NUR ---
Pt will be medically stable to dc when o2 needs are 5L or less, Pt currently on 9L. Rollator walker to be delivered to hospital today. CM faxed hospital bed order to Tish at [facility], she will let CM know if insurance will cover. Wound vac delivered today, surgery to place today. CM waiting regional account manager back from [facility] to determine if they will be able to accept Pt over the weekend, dc orders will need to be faxed to [phone] p:[phone]. Anticipate weekend dc.
[2020-03-16 15:18] VITALS: BP 122/74
[2020-03-16 16:00] VITALS: BP 134/61
--- NOTE | 2020-03-16 18:00 | NUR ---
VS CHARTED, SB TO AFIB ON TELE, HIGH FLOW CANNULA AT 7L- BIPAP AT NIGHT, LEFT LEG WOUND FROM HEMATOMA WITH WOUND VAC, LIMITED MOBILITY DUE TO WOUND VAC, PURE WICK IN USE, EXTREME SOA ON EXERTION AND COMMUNICATION.
[2020-03-16 20:00] VITALS: BP 125/72
[2020-03-17 00:23] VITALS: BP 153/64
[2020-03-17 04:25] VITALS: BP 141/66
--- NOTE | 2020-03-17 06:12 | NUR ---
ASSUMED CARE OF PT AFTER REPORT AT 1930. PT A&OX4. VSS .PHYSICAL ASSESSMENT COMPLETED AND CHARTED. PT ON O2 AT 7L NC/BIPAP AT HS. PT TRACING SR/BBB ON TELE. PT COMPLAINED OF BACK PAIN-MED GIVEN PER SEP. MAINTAINED LLE ON WOUND VAC. PT WITH EPISODES OF INCONTINENT BLADDER. PT O2 SAT DROPS TO 84-88& WHEN TALKING. FALL PRECAUTIONS IN PLACE. CALL LIGHT WITHIN REACH.
[2020-03-17 08:00] VITALS: BP 140/82
[2020-03-17] MEDS ORDERED: ELIQUIS5 MG PO (11:22)
[2020-03-17 12:10] VITALS: BP 143/70
[2020-03-17 17:17] VITALS: BP 125/75
[2020-03-17 20:00] VITALS: BP 112/75
[2020-03-18] VITALS (7 sets, daily range): BP systolic 112–135; BP diastolic 57–74
--- NOTE | 2020-03-18 08:00 | NUR ---
ASSUMED CARE OF PT AFTER REPORT AT 1930. PT A&OX4. VSS. PHYSICAL ASSESSMENT COMPLETED AND CHARTED. PT ON O2 AT 7L NC/BIPAP AT HS. PT ONLY WORE BIPAP FOR A COUPLE OF HOURS. PT ON CONTINUOUS PULSE OX. PT WAS NAUSEAUS BUT REFUSED MEDICATION. FALL PREACUTIONS IN PLACE. CALL LIGHT WITHIN REACH.
[2020-03-18] MEDS ORDERED: SERTRALINE HCL100 MG PO (09:12)
--- NOTE | 2020-03-18 18:04 | NUR ---
Pt AOx4. Pt is up with assist x1 to bsc. Pt has wound vac in place. Pt remains on supp oxygen to maintain O2 sats. 5L NC currently. No c/o SOA. Pt is receiving PO antibiotics and toelrating well. Pt wants further assistance and referral to Skilled or rehab, consult to case management made. Will continue to monitor
[2020-03-19] VITALS: BP 131/68
[2020-03-19 04:02] VITALS: BP 102/55
--- NOTE | 2020-03-19 05:57 | NUR ---
ASSUMED CARE OF PT AFTER REPORT AT 1930. PT A&OX4. VSS. PHYSICAL ASSESSMENT COMPLETED AND CHARTED. PT ON O2 AT 5L NC/BIPAP AT HS- ON CONTINUOUS PULSE OX. DENIES SOA. PT TRACING SR/BBB/PAC ON TELE. FALL PRECAUTIONS IN PLACE. CALL LIGHT WITHIN REACH.
[2020-03-19 08:00] VITALS: BP 133/54
--- NOTE | 2020-03-19 08:35 | NUR ---
CM spoke with Pt regarding dispo, Pt now wanting to dc to Skilled. CM faxed referral to [facility] and [facility], the only 2 facilities in Pt's insurance network. Cm requested that PT/OT see Pt today, asked facilities to initiate insurance auth. Pt medically stable to dc once ins auth rec'd
--- NOTE | 2020-03-19 10:00 | NUR ---
RECIEVED REPORT AROUND 07. ASSUMED CARE. VS AND ASSESSMENT CHARTED. IV INTACT. LEFT FOREARM. SALINE LOCK. HEART MONITOR ATTACHED AT SR WITH BBB. PT REPORTED PAIN AT 5. PAIN MED GIVEN PER MAR. PATIENT TO BE DISCHARED. PHYSICAL THERAPY WORKED WITH PT. PT WAS ONLY ABLE TO MAKE TO ROOM DOOR AND BECAME SHORT OF BREATH WITH 6L NC. CALL LIGHT WITHIN REACH. WILL CONTINUE TO MONITOR.
[2020-03-19 12:01] VITALS: BP 111/62
--- NOTE | 2020-03-19 16:43 | OP ---
[facility] [address] [place] [address] OPERATIVE REPORT Name: JEREMIAHAILEEN SHAHID Room: [address] IN M.R.#: [id number] Admission: 03/11/20 Attend Phys: Solis Ferreira Discharge: Date of : 39 Report #: [id number] THIS REPORT FOR: //name// cc: Ramona Green MD, Lin W. MD ~ CC: Ramona Jones DICTATED BY: Manuel Rae DO DATE OF SERVICE: 03/14/2020 PREOPERATIVE DIAGNOSIS: Left leg hematoma and associated skin necrosis. POSTPROCEDURE DIAGNOSIS: Left leg hematoma and associated skin necrosis. SURGEON: David Morales DO LIBRARIAN HELPER: Manuel Rea, PGY5 and Bryant MS3 OPERATION PERFORMED: Sharp debridement of necrotic skin and evacuation of left lower extremity hematoma and pulse evacuation of hematoma. ANESTHESIA: MAC and regional block. ESTIMATED BLOOD LOSS: 50. SPECIMEN: None. COMPLICATIONS: None. FINDINGS: Final defect size was 24 x 9 x 1.5 cm, depth was muscle fascia. INDICATIONS: The patient is an 85-year-old female, on Eliquis for AFib, that had a fall and struck her leg against a chair. She had resultant hematoma that was the entire length of her lower lateral left leg. General Surgery was consulted for finding. A bedside debridement was performed and evacuation of clot; however, hematoma was not completely evacuated and skin was not debrided due to the patient's intolerance. She was planned to go to the operating room yesterday, but had increased oxygen requirements with history of severe COPD. Workup for pulmonary embolism and pulmonary contusion was negative, so she was rescheduled for today. Prior to operation, a discussion of the nature of her wound and the long-term plan for healing the wound was held. She was informed of the risks and benefits of hematoma evacuation and debridement of the necrotic skin . [place] [id number] OPERATIVE REPORT Name: AILEEN DANIELS SHAHID Room: [address] IN [facility]#: [id number] Admission: 03/11/20 Attend Phys: Solis Ferreira Discharge: Date of : 39 Report #: [id number] and decided to proceed with surgery. DESCRIPTION OF PROCEDURE: After informed consent was obtained, the patient was brought to the operating room. Anesthesia placed a popliteal block in preop. The patient's left lower extremity was prepped and draped in the usual sterile fashion. A surgical pause was held to confirm proper patient and procedure. She was on scheduled Rocephin on the floor. Suction was used to evacuate the remaining hematoma along with blunt dissection, freeing it from underlying muscle fascia. The necrotic skin flaps were grasped with pickups and sharply debrided with Metzenbaum scissors to healthy skin edge. This was performed circumferentially. All clot was manually evacuated. The pulse evacuator was then used over the entire surface area of the wound. 3 liters in volume was used. Once the tissue appeared adequately debrided and healthy, all hematoma was removed. The wound measured 24 x 9 x 1.5 cm. The wound extended down to muscle fascia. There was very little subcutaneous fat left in place. A large black sponge wound VAC was then selected. The circumference of the wound was protected using strips of the wound VAC drape all the way around the wound. The black sponge was then cut to size and secured using additional drape. The suction was applied at 125mmHg. There was adequate seal and negative pressure. The patient tolerated the procedure well. She was transferred to the PACU in stable condition. All counts were correct. <ELECTRONICALLY SIGNED> By: David Morales DO 03/19/20 [id number] Morales DO /nt
[2020-03-19 17:02] VITALS: BP 126/64
--- NOTE | 2020-03-19 18:27 | NUR ---
NO MORE REPORTS OF PAIN THIS SHIFT. DID HAVE SOME NAUSEA. PT DECLINED ANY MEDS TO BE GIVEN FOR IT. PT IS CURRENTLY ON 5L NC. FRIEND VISITED THIS SHIFT. FRIEND UPDATED ON PT. PT TO BE DISCHARGED TOMORROW PENDING. SURGERY CHANGED WOUND VAC DRESSING. MEDICATION PER SEP. HOURLY ROUNDING PERFORMED. IV INTACT. HEART MONITOR ATTACHED AT . CALL LIGHT WITHIN REACH. WILL CONTINUE TO MONITOR.
[2020-03-19 20:20] VITALS: BP 116/57
[2020-03-20] VITALS: BP 108/56
[2020-03-20 04:00] VITALS: BP 100/59
--- NOTE | 2020-03-20 06:59 | NUR ---
PT CARE ASSUMED AT 1930. SAT MAINTAINED IN O2. ALERT AND ORIENTED X4. WOUND VAC DRAINING. DENIES PAIN. SOB WITH EXERTION. CALL LIGHT WITHIN REACH AND BED IN LOW POSITION. HOURLY ROUNDING DONE FOR PT SAFETY.
[2020-03-20 08:00] VITALS: BP 112/76
--- NOTE | 2020-03-20 11:10 | NUR ---
RECIEVED REPORT AROUND 0715. ASSUMED CARE. IV INTACTS LEFT FOREARM. LEFT AC. SALINE LOCK. HEART MONITOR ATTACHED AT WITH BBB. VS AND ASSESSMENT CHARTED. PT LYING IN BED THIS AM. PT ON 4L NC. MEDICATION GIVEN THIS AM. NO REPORTS OF PAIN. WOUND VAC ON LEFT LEG TO BE CHANGED BY SURGERY. POSSIBLE DISCHARGE TODAY. AWAITING INSURANCE APPROVAL. PT REQUESTED PAIN MEDICATION AFTER AM ASSESSMENT. PAIN MED GIVEN. COVID RAPID TEST DONE AND TAKEN TO LAB. PT TO BE DISCHARGED TODAY. INSURGANCE APPROVED CURRENTLY. CALL LIGHT WITHIN REACH. WILL CONTINUE TO MONITOR.
--- NOTE | 2020-03-20 11:41 | NUR ---
Pt discharging to [facility] today, facility to brain picker at 330. Updated Pt and friend. Faxed dc orders. Chart copied. Nurse report number is [id number].
[2020-03-20 11:50] VITALS: BP 116/53
--- NOTE | 2020-03-20 15:38 | NUR ---
MED/SURG STATUS. PT IV TAKEN OUT. HEART MONITOR TAKEN OFF. DISCHARGE PACKET COPY AND CARE NOTES GIVEN TO PT, WELL IN THE FOLDER FOR THE FACILITY. PT COMMUNICATED UNDERSTANDING OF DISCHARGE. VENDOR REPRESENTATIVES TOOK THIS HOSPITALS WOUND VAC BACK TO [facility]. SURGERY WRAPPED LEFT LEG WOUND.
== END 2020-03-20 16:05 | DRG 579 ==
LOC: M.ERS 20:42 → M.TBA-ER 22:05 → M.2W 22:05
PROVIDERS: Emergency Medicine; Internal Medicine Critical Care Medicine; Nurse Practitioner; Surgery; ADMIT Internal Medicine; ATTEND Internal Medicine
PROC: 0KBT0ZZ Excision of Left Lower Leg Muscle, Open Approach (ICD-10-PCS; principal; 2020-03-14)
PROC: 0YJJ0ZZ Inspection of Left Lower Leg, Open Approach (ICD-10-PCS; principal; 2020-03-14)
PROC: 3E0T3BZ Introduction of Anesthetic Agent into Peripheral Nerves and Plexi, Percutaneous Approach (ICD-10-PCS; principal; 2020-03-14)
PROC: 02HV33Z Insertion of Infusion Device into Superior Vena Cava, Percutaneous Approach (ICD-10-PCS; 2020-03-15)
PROC: 5A09357 Assistance with Respiratory Ventilation, Less than 24 Consecutive Hours, Continuous Positive Airway Pressure (ICD-10-PCS; 2020-03-15)
PROC: 5A09357 Assistance with Respiratory Ventilation, Less than 24 Consecutive Hours, Continuous Positive Airway Pressure (ICD-10-PCS; 2020-03-16)
PROC: 5A09357 Assistance with Respiratory Ventilation, Less than 24 Consecutive Hours, Continuous Positive Airway Pressure (ICD-10-PCS; 2020-03-17)
PROC: 5A09357 Assistance with Respiratory Ventilation, Less than 24 Consecutive Hours, Continuous Positive Airway Pressure (ICD-10-PCS; 2020-03-18)
PROC: 5A09357 Assistance with Respiratory Ventilation, Less than 24 Consecutive Hours, Continuous Positive Airway Pressure (ICD-10-PCS; 2020-03-19)
PROC: 5A09357 Assistance with Respiratory Ventilation, Less than 24 Consecutive Hours, Continuous Positive Airway Pressure (ICD-10-PCS; 2020-03-20)
DX: S80.12XA Contusion of left lower leg, initial encounter (principal); J96.21 Acute and chronic respiratory failure with hypoxia; N39.0 Urinary tract infection, site not specified; I42.9 Cardiomyopathy, unspecified; J98.11 Atelectasis; S27.321A Contusion of lung, unilateral, initial encounter; I48.0 Paroxysmal atrial fibrillation; B96.20 Unspecified Escherichia coli [E. coli] as the cause of diseases classified elsewhere; R91.1 Solitary pulmonary nodule; E78.5 Hyperlipidemia, unspecified; W17.89XA Other fall from one level to another, initial encounter; J44.9 Chronic obstructive pulmonary disease, unspecified; I44.7 Left bundle-branch block, unspecified; I10 Essential (primary) hypertension; E87.70 Fluid overload, unspecified; Z60.2 Problems related to living alone; Z66 Do not resuscitate; Z20.828 Contact with and (suspected) exposure to other viral communicable diseases; Z90.710 Acquired absence of both cervix and uterus; Z95.1 Presence of aortocoronary bypass graft; Z79.899 Other long term (current) drug therapy; Z99.81 Dependence on supplemental oxygen; Y93.89 Activity, other specified; Y92.89 Other specified places as the place of occurrence of the external cause; Y99.8 Other external cause status; Z79.82 Long term (current) use of aspirin

== ENCOUNTER → 2020-04-04 | Outpatient (CLI) | payer OTHER ==
[~2020-04-04] MED LIST changes: +AMOX TR-K CLV1 EAC3 PO; +CARDIZEM CD120 MG PO; +ELIQUIS5 MG PO; +HYDROCODON-ACE1 EAC7 PO; +PREDNISONE 10 M10 MG PO; +SERTRALINE HCL100 MG PO; +SINGULAIR 10 MG10 M1 PO
== END ==
LOC: M.WC 08:32
PROVIDERS: ATTEND Family Medicine
DX: L97.222 Non-pressure chronic ulcer of left calf with fat layer exposed (principal); I89.0 Lymphedema, not elsewhere classified; I48.11 Longstanding persistent atrial fibrillation; I10 Essential (primary) hypertension; I48.91 Unspecified atrial fibrillation; E78.5 Hyperlipidemia, unspecified; J44.9 Chronic obstructive pulmonary disease, unspecified; F32.9 Major depressive disorder, single episode, unspecified; Z90.710 Acquired absence of both cervix and uterus; Z79.82 Long term (current) use of aspirin

== ENCOUNTER → 2020-04-11 | Outpatient (CLI) | payer OTHER | LOC: M.WC 04:54 | PROVIDERS: ATTEND Surgery | DX: L97.222 Non-pressure chronic ulcer of left calf with fat layer exposed (principal); I89.0 Lymphedema, not elsewhere classified; I48.11 Longstanding persistent atrial fibrillation; I10 Essential (primary) hypertension; E78.5 Hyperlipidemia, unspecified; J44.9 Chronic obstructive pulmonary disease, unspecified; F32.9 Major depressive disorder, single episode, unspecified; Z79.82 Long term (current) use of aspirin; Z79.01 Long term (current) use of anticoagulants ==

== ENCOUNTER → 2020-04-18 | Outpatient (CLI) | payer OTHER | LOC: M.WC 04:43 | PROVIDERS: ATTEND Surgery | DX: L97.222 Non-pressure chronic ulcer of left calf with fat layer exposed (principal); I89.0 Lymphedema, not elsewhere classified; I10 Essential (primary) hypertension; I48.11 Longstanding persistent atrial fibrillation; E78.5 Hyperlipidemia, unspecified; J44.9 Chronic obstructive pulmonary disease, unspecified; F32.9 Major depressive disorder, single episode, unspecified; Z79.82 Long term (current) use of aspirin ==

== ENCOUNTER → 2020-04-25 | Outpatient (CLI) | payer OTHER | LOC: M.WC 04:52 | PROVIDERS: ATTEND Surgery | DX: L97.222 Non-pressure chronic ulcer of left calf with fat layer exposed (principal); I89.0 Lymphedema, not elsewhere classified; I48.11 Longstanding persistent atrial fibrillation; I10 Essential (primary) hypertension; I48.91 Unspecified atrial fibrillation; E78.5 Hyperlipidemia, unspecified; J44.9 Chronic obstructive pulmonary disease, unspecified; F32.9 Major depressive disorder, single episode, unspecified; Z79.82 Long term (current) use of aspirin ==

== ENCOUNTER → 2020-05-02 | Outpatient (CLI) | payer OTHER | LOC: M.WC 05:13 | PROVIDERS: ATTEND Surgery | DX: L97.222 Non-pressure chronic ulcer of left calf with fat layer exposed (principal); I89.0 Lymphedema, not elsewhere classified; I48.11 Longstanding persistent atrial fibrillation; I10 Essential (primary) hypertension; E78.5 Hyperlipidemia, unspecified; J44.9 Chronic obstructive pulmonary disease, unspecified; F32.9 Major depressive disorder, single episode, unspecified; Z79.82 Long term (current) use of aspirin ==

== ENCOUNTER → 2020-05-09 | Outpatient (CLI) | payer OTHER | LOC: M.WC 08:27 | PROVIDERS: ATTEND Surgery | DX: L97.222 Non-pressure chronic ulcer of left calf with fat layer exposed (principal); I89.0 Lymphedema, not elsewhere classified; I48.11 Longstanding persistent atrial fibrillation; I10 Essential (primary) hypertension; E78.5 Hyperlipidemia, unspecified; J44.9 Chronic obstructive pulmonary disease, unspecified; F32.9 Major depressive disorder, single episode, unspecified; Z79.82 Long term (current) use of aspirin; Z79.01 Long term (current) use of anticoagulants ==